=== PATIENT | male | born 1945 | race Caucasian/White ===

== ENCOUNTER 2021-05-09 07:56 | Inpatient (IN) | payer MEDICARE, OTHER ==
[~2021-05-09] VITALS: Ht 177.8 cm; Wt 82.5 kg
[2021-05-09] VITALS (11 sets, daily range): BP systolic 130–170; BP diastolic 52–91; PULSE 57–103; TEMP 97.5–98.7
[2021-05-09] MEDS ORDERED: NORVASC 10MG10 MG PO (08:29)
[2021-05-09] MEDS ORDERED: ELIQUIS 5MG PO (08:29)
[2021-05-09] MEDS ORDERED: COREG 25MG25 MG/TAB PO (08:30)
[2021-05-09] MEDS ORDERED: HCTZ 25MG TAB25 MG PO (08:30)
[2021-05-09] MEDS ORDERED: CRESTOR5 MG PO (08:31)
[2021-05-09] MEDS ORDERED: PRINIVIL40 MG PO (08:31)
[2021-05-09 08:41] LABS: HEMATOCRIT 38.4 % (42.0-52.0); HEMOGLOBIN 13.1 g/dl (13.5-18.0); MEAN CELL VOLUME 97 fl (80.0-100.0); MEAN CORPUSCULAR HEMOGLOBIN 33 pg (27-31); MEAN CORPUSCULAR HGB CONC 34 g/dl (33.0-37.0); MEAN PLATELET VOLUME 8.7 fl (7.4-10.4); PLATELET COUNT 315 K/mm3 (130-400); RED BLOOD COUNT 3.95 M/mm3 (4.20-5.60); REDCELL DISTRIBUTION WIDTH-CV 13.7 % (11.5-14.5)
[2021-05-09 08:51] LABS: INR 1.3 (0.8-3.0); PROTHROMBIN TIME 14.7 SECONDS (9.7-12.8)
[2021-05-09 08:54] LABS: PARTIAL THROMBOPLASTIN TIME 34.9 SECONDS (26.0-37.0)
[2021-05-09 08:57] LABS: CALCIUM 9.3 mg/dL (8.4-10.2); CREATININE, serum 0.75 mg/dL (0.72-1.25); POTASSIUM 4.1 mmol/L (3.5-4.5)
[2021-05-09 09:18] LABS: THYROID STIMULATING HORMONE 2.801 uIU/mL (0.350-4.940)
[2021-05-10 00:44] VITALS: BP 168/74; PULSE 65; TEMP 97.5
[2021-05-10 04:18] VITALS: BP 144/65; PULSE 59; TEMP 98
[2021-05-10 06:19] LABS: BASO % 0.4 % (0.0-2.0); EOS # 0.1 K/mm3 (0.0-0.7); EOS % 1.6 % (0.0-4.0); GRAN # 4.4 K/mm3 (1.4-6.5); GRAN % 64.3 % (42.2-75.2); HEMOGLOBIN 11.8 g/dl (13.5-18.0); LYMPH # 1.2 K/mm3 (1.2-3.4); LYMPH % 18.1 % (20.0-51.0); MEAN CELL VOLUME 98 fl (80.0-100.0); MEAN CORPUSCULAR HEMOGLOBIN 33 pg (27-31); MEAN CORPUSCULAR HGB CONC 34 g/dl (33.0-37.0); MONO # 1.1 K/mm3 (0.1-0.6); MONO % 15.3 % (1.7-9.3); PLATELET COUNT 285 K/mm3 (130-400); RED BLOOD COUNT 3.57 M/mm3 (4.20-5.60); REDCELL DISTRIBUTION WIDTH-CV 13.4 % (11.5-14.5)
[2021-05-10 06:27] LABS: HEMATOCRIT 34.9 % (42.0-52.0)
[2021-05-10 06:32] LABS: CALCIUM 8.9 mg/dL (8.4-10.2); CREATININE, serum 0.65 mg/dL (0.72-1.25); MAGNESIUM 1.7 mg/dL (1.6-2.6); POTASSIUM 3.6 mmol/L (3.5-4.5)
[2021-05-10 07:18] VITALS: BP 162/70; PULSE 55; TEMP 98.3
[2021-05-10 11:30] VITALS: BP 164/71; PULSE 55; TEMP 98.3
[2021-05-10 15:12] VITALS: BP 142/86; PULSE 59; TEMP 98.4
[2021-05-10 19:25] VITALS: BP 151/65; PULSE 62; TEMP 98.7
[2021-05-11 00:16] VITALS: BP 152/79; PULSE 71; TEMP 98
[2021-05-11 04:24] VITALS: BP 149/67; PULSE 59; TEMP 98.6
[2021-05-11 06:07] LABS: BASO % 0.4 % (0.0-2.0); EOS # 0.1 K/mm3 (0.0-0.7); EOS % 1.8 % (0.0-4.0); GRAN # 4.1 K/mm3 (1.4-6.5); GRAN % 59.8 % (42.2-75.2); HEMATOCRIT 36.1 % (42.0-52.0); HEMOGLOBIN 12.3 g/dl (13.5-18.0); LYMPH # 1.4 K/mm3 (1.2-3.4); LYMPH % 20.8 % (20.0-51.0); MEAN CELL VOLUME 96 fl (80.0-100.0); MEAN CORPUSCULAR HEMOGLOBIN 33 pg (27-31); MEAN CORPUSCULAR HGB CONC 34 g/dl (33.0-37.0); MEAN PLATELET VOLUME 8.6 fl (7.4-10.4); MONO # 1.2 K/mm3 (0.1-0.6); MONO % 16.9 % (1.7-9.3); PLATELET COUNT 264 K/mm3 (130-400); RED BLOOD COUNT 3.76 M/mm3 (4.20-5.60); REDCELL DISTRIBUTION WIDTH-CV 13.4 % (11.5-14.5)
[2021-05-11 06:22] LABS: CREATININE, serum 0.64 mg/dL (0.72-1.25); MAGNESIUM 1.7 mg/dL (1.6-2.6); POTASSIUM 4.2 mmol/L (3.5-4.5)
[2021-05-11 08:19] VITALS: BP 178/82; PULSE 66; TEMP 97.8
[2021-05-11] MEDS ORDERED: BETAPACE 80MG80 MG PO (10:30)
[2021-05-11] MEDS ORDERED: APRESOLINE50 MG PO (10:31)
== END 2021-05-11 11:59 | disposition home or self-care (01) | DRG 310 ==
LOC: COL.CAR 07:56 → MEDICAL 09:29
PROVIDERS: Internal Medicine Adult Congenital Heart Disease; ADMIT Internal Medicine Cardiovascular Disease
PROC: 5A2204Z Restoration of Cardiac Rhythm, Single (ICD-10-PCS; principal; 2021-05-09)
DX: I48.19 Other persistent atrial fibrillation (principal); Z23 Encounter for immunization
CPT/HCPCS: J2704; J7120

== ENCOUNTER 2021-06-01 07:19 | Day surgery (SDC) | payer MEDICARE, OTHER ==
[~2021-06-01] VITALS: Ht 177.8 cm; Wt 86.3 kg
[2021-06-01] VITALS (9 sets, daily range): BP systolic 123–164; BP diastolic 82–101; PULSE 6–99; TEMP 99.2
[~2021-06-01 07:19] MED LIST: APRESOLINE50 MG PO; BETAPACE 80MG80 MG PO; COREG 25MG25 MG/TAB PO; CRESTOR5 MG PO; ELIQUIS 5MG PO; HCTZ 25MG TAB25 MG PO; NORVASC 10MG10 MG PO; PRINIVIL40 MG PO
[2021-06-01 07:51] LABS: HEMATOCRIT 37.3 % (42.0-52.0); HEMOGLOBIN 13.4 g/dl (13.5-18.0); MEAN CELL VOLUME 91 fl (80.0-100.0); MEAN CORPUSCULAR HEMOGLOBIN 33 pg (27-31); MEAN CORPUSCULAR HGB CONC 36 g/dl (33.0-37.0); MEAN PLATELET VOLUME 8.9 fl (7.4-10.4); PLATELET COUNT 250 K/mm3 (130-400); RED BLOOD COUNT 4.11 M/mm3 (4.20-5.60); REDCELL DISTRIBUTION WIDTH-CV 13.1 % (11.5-14.5)
[2021-06-01 08:03] LABS: INR 1.5 (0.8-3.0)
[2021-06-01] MEDS ORDERED: APRESOLINE50 MG PO ×2 (08:04→10:16)
[2021-06-01 08:06] LABS: PARTIAL THROMBOPLASTIN TIME 33.4 SECONDS (26.0-37.0)
[2021-06-01] MEDS ORDERED: PRESERVISION1 SGL PO (08:06)
[2021-06-01 08:08] LABS: CALCIUM 8.8 mg/dL (8.4-10.2); CREATININE, serum 0.67 mg/dL (0.72-1.25); MAGNESIUM 1.7 mg/dL (1.6-2.6); POTASSIUM 3.9 mmol/L (3.5-4.5)
[2021-06-01 08:28] LABS: THYROID STIMULATING HORMONE 2.603 uIU/mL (0.350-4.940)
--- NOTE | 2021-06-01 09:44 | NUR ---
outreach worker showing increased, irregular heartrate in the 80s and alarming "afib." Dr Smith notified and goes into room to evaluate pt.
[2021-06-01] MEDS ORDERED: BETAPACE 120MG120 MG PO (10:17)
--- NOTE | 2021-06-01 10:44 | NUR ---
DC instructions and med changes discussed with pt. He expresses understanding. He is steady on feet in room. He has tolerated PO fluids without issue. INT DC'd with catheter intact. He has contacted neighbor to come to pick him up. He will wait in room until she arrives.
--- NOTE | 2021-06-01 12:50 | NUR ---
Pt's neighbor arrives to pick him up. He has been waiting in room, sitting up in chair with staff checking on him periodically. He has denied needs or complaints while waiting. He is assisted out to her car by wheelchair with jake.
== END 2021-06-01 12:50 | disposition home or self-care (01) ==
LOC: COL.CAR 07:19
PROVIDERS: Internal Medicine Adult Congenital Heart Disease
DX: I48.0 Paroxysmal atrial fibrillation (principal); I10 Essential (primary) hypertension; E78.2 Mixed hyperlipidemia; Z87.891 Personal history of nicotine dependence; Z79.01 Long term (current) use of anticoagulants; Z79.899 Other long term (current) drug therapy
CPT/HCPCS: J2704; J3010